=== PATIENT | female | born 1995 | race Caucasian/White ===

== ENCOUNTER 2018-01-17 12:25 | Emergency (ER) | payer OTHER ==
[2018-01-17] MEDS: ACETAMINOPHEN 325 MG TAB PO (12:45)
== END 2018-01-17 13:42 | disposition home or self-care (01) ==
LOC: FTE 12:25
DX: J06.9 Acute upper respiratory infection, unspecified (principal); E11.9 Type 2 diabetes mellitus without complications; Z79.84 Long term (current) use of oral hypoglycemic drugs
CPT/HCPCS: 71045; 99283-25

== ENCOUNTER 2018-02-12 09:10 | Emergency (ER) | payer OTHER ==
[2018-02-12] MEDS: morphine 4 MG/ML VIAL IV (10:06)
[2018-02-12] MEDS: ONDANSETRON 4 MG INJ IV (10:06)
[2018-02-12 10:10] LABS: ADD MAN DIFF? NO
[2018-02-12 10:13] LABS: WHITE BLOOD COUNT 13.3 10^3/ul (4.8-10.8)
[2018-02-12 10:13] LABS: BASOPHIL # 0.1 10^3/ul (0.0-0.1); BASOPHILS % 0.4 % (0.0-2.0); EOSINOPHILS # 0.2 10^3/ul (0.0-0.5); EOSINOPHILS % 1.2 % (0.0-7.0); HEMATOCRIT 40.1 % (37.0-47.0); HEMOGLOBIN 13.2 g/dl (12.0-16.0); LYMPHOCYTES # 2.1 10^3/ul (0.8-2.9); LYMPHOCYTES % 15.6 % (15.0-51.0); MEAN CORPUSCULAR HEMOGLOBIN 27.1 pg (29.0-33.0); MEAN CORPUSCULAR HGB CONC 32.9 g/dl (32.0-37.0); MEAN CORPUSCULAR VOLUME 82.3 fl (82.0-101.0); MEAN PLATELET VOLUME 10.9 fl (7.4-10.4); MONOCYTE # 0.8 10^3/ul (0.3-0.9); MONOCYTES % 6.3 % (0.0-11.0); NEUTROPHIL # 10.2 10^3/ul (1.6-7.5); NEUTROPHILS % 76.1 % (39.0-77.0); PLATELET COUNT 265 10^3/UL (140-415); RED BLOOD COUNT 4.87 10^6/ul (4.20-5.40); RED CELL DISTRIBUTION WIDTH 12.3 % (11.5-14.5)
[2018-02-12 10:24] LABS: ADD UMIC YES; UR ASCORBIC ACID NEGATIVE (NEGATIVE); UR BACTERIA FEW /HPF (NONE SEEN); UR BILIRUBIN (Dip) NEGATIVE (NEGATIVE); UR BLOOD (Dip) 3+ mg/dL (NEGATIVE); UR BUDDING YEAST FEW /HPF (NONE SEEN); UR CLARITY CLEAR (CLEAR); UR COLOR YELLOW (YELLOW); UR GLUCOSE (Dip) 3+ mg/dL (NEGATIVE); UR KETONES (Dip) 1+ mg/dL (NEGATIVE); UR LEUKOCYTE ESTERASE (Dip) NEGATIVE Leu/ul (NEGATIVE); UR NITRITE (Dip) NEGATIVE (NEGATIVE); UR RBC > 182 /HPF (0-5); UR SQUAMOUS EPITHELIAL CELL MODERATE /HPF (FEW); UR TOTAL PROTEIN (Dip) 2+ mg/dl (NEGATIVE); UR UROBILINOGEN (Dip) NEGATIVE (NEGATIVE); UR WBC 7 /HPF (0-5)
[2018-02-12 10:32] LABS: ALANINE AMINOTRANSFERASE 24 IU/L (13-69); ALBUMIN 3.8 g/dl (3.3-4.9); ALBUMIN/GLOBULIN RATIO 1.15; ALKALINE PHOSPHATASE 78 IU/L (42-121); ANION GAP 14 (8-16); ASPARTATE AMINO TRANSFERASE 12 IU/L (15-46); BILIRUBIN,INDIRECT 0.5 mg/dl (0-1.1); BILIRUBIN,TOTAL 0.5 mg/dl (0.2-1.3); BLOOD UREA NITROGEN 5 mg/dl (7-20); CALCIUM 8.8 mg/dl (8.4-10.2); CARBON DIOXIDE 27 mmol/L (21-31); CHLORIDE 105 mmol/L (97-110); CREATINE KINASE 57 IU/L (23-200); CREATININE 0.41 mg/dl (0.44-1.00); GLUCOSE 269 mg/dl (70-220); LIPASE 34 U/L (23-300); POTASSIUM 4.3 mmol/L (3.5-5.1); SODIUM 142 mmol/L (135-144); TOTAL PROTEIN 7.1 g/dl (6.1-8.1)
[2018-02-12] MEDS: KETOROLAC 30 MG INJ IV (11:58)
[2018-02-12] MEDS: SOD CHLORIDE 0.9% 1,000 ML IV (12:18)
== END 2018-02-12 14:50 | disposition home or self-care (01) ==
LOC: FTE 14:50
DX: M79.605 Pain in left leg (principal); R59.9 Enlarged lymph nodes, unspecified; E11.9 Type 2 diabetes mellitus without complications; R10.2 Pelvic and perineal pain; Z79.84 Long term (current) use of oral hypoglycemic drugs
CPT/HCPCS: 36415; 73550; 76856; 80053; 81001; 81025; 82550; 83690; 85025; 96374; 96375; 99285-25

== ENCOUNTER 2018-02-18 22:02 | Inpatient (IN) | payer OTHER ==
[2018-02-18] MEDS ORDERED: PIPER-TAZO 3.375 GM IV (PMX) 100 ML IVPB (23:50)
[2018-02-19] MEDS: SOD CHLORIDE 0.9% 1,000 ML IV ×2 (00:10→03:46)
[2018-02-19] MEDS: VANCOMYCIN 1 GM (PMX) 250 ML IVPB (00:11)
[2018-02-19] MEDS: SODIUM CHLORIDE 0.9% 1L BAG IV* (00:11)
[2018-02-19] MEDS: KETOROLAC 30 MG INJ IV (00:11)
[2018-02-19] MEDS: morphine 4 MG/ML VIAL IV (00:11)
[2018-02-19] MEDS ORDERED: ONDANSETRON 4 MG INJ (00:15)
[2018-02-19 00:22] LABS: ADD MAN DIFF? NO
[2018-02-19 00:24] LABS: BASOPHIL # 0.1 10^3/ul (0.0-0.1); BASOPHILS % 0.4 % (0.0-2.0); EOSINOPHILS # 0.2 10^3/ul (0.0-0.5); EOSINOPHILS % 1.3 % (0.0-7.0); HEMATOCRIT 39.9 % (37.0-47.0); HEMOGLOBIN 13.1 g/dl (12.0-16.0); LYMPHOCYTES # 3.1 10^3/ul (0.8-2.9); LYMPHOCYTES % 18.5 % (15.0-51.0); MEAN CORPUSCULAR HEMOGLOBIN 27.1 pg (29.0-33.0); MEAN CORPUSCULAR HGB CONC 32.8 g/dl (32.0-37.0); MEAN CORPUSCULAR VOLUME 82.4 fl (82.0-101.0); MEAN PLATELET VOLUME 10.4 fl (7.4-10.4); MONOCYTE # 1.2 10^3/ul (0.3-0.9); NEUTROPHILS % 72.3 % (39.0-77.0); PLATELET COUNT 386 10^3/UL (140-415); RED BLOOD COUNT 4.84 10^6/ul (4.20-5.40); RED CELL DISTRIBUTION WIDTH 12.3 % (11.5-14.5)
[2018-02-19 00:24] LABS: WHITE BLOOD COUNT 16.6 10^3/ul (4.8-10.8)
[2018-02-19] MEDS: ONDANSETRON 4 MG INJ IV (00:46)
[2018-02-19 00:58] LABS: LACTIC ACID 1.7 mmol/L (0.5-2.0)
[2018-02-19 01:00] LABS: ALANINE AMINOTRANSFERASE 18 IU/L (13-69); ALBUMIN 3.6 g/dl (3.3-4.9); ALBUMIN/GLOBULIN RATIO 0.97; ALKALINE PHOSPHATASE 92 IU/L (42-121); ANION GAP 15 (8-16); ASPARTATE AMINO TRANSFERASE 13 IU/L (15-46); BILIRUBIN,INDIRECT 0.1 mg/dl (0-1.1); BILIRUBIN,TOTAL 0.1 mg/dl (0.2-1.3); BLOOD UREA NITROGEN 8 mg/dl (7-20); CALCIUM 9.3 mg/dl (8.4-10.2); CARBON DIOXIDE 27 mmol/L (21-31); CHLORIDE 107 mmol/L (97-110); CREATININE 0.44 mg/dl (0.44-1.00); GLUCOSE 321 mg/dl (70-220); POTASSIUM 3.8 mmol/L (3.5-5.1); SODIUM 145 mmol/L (135-144); TOTAL PROTEIN 7.3 g/dl (6.1-8.1)
[2018-02-19] MEDS ORDERED: VANCOMYCIN IV PER PHARMACY XX (03:30)
[2018-02-19 03:32] LABS: ADD UMIC YES; UR ASCORBIC ACID NEGATIVE (NEGATIVE); UR BILIRUBIN (Dip) NEGATIVE (NEGATIVE); UR BLOOD (Dip) 1+ mg/dL (NEGATIVE); UR CLARITY CLEAR (CLEAR); UR COLOR YELLOW (YELLOW); UR GLUCOSE (Dip) 3+ mg/dL (NEGATIVE); UR KETONES (Dip) NEGATIVE (NEGATIVE); UR LEUKOCYTE ESTERASE (Dip) NEGATIVE Leu/ul (NEGATIVE); UR NITRITE (Dip) NEGATIVE (NEGATIVE); UR RBC 1 /HPF (0-5); UR SPECIFIC GRAVITY (Dip) 1.027 (1.003-1.030); UR SQUAMOUS EPITHELIAL CELL FEW /HPF (FEW); UR TOTAL PROTEIN (Dip) 1+ mg/dl (NEGATIVE); UR UROBILINOGEN (Dip) NEGATIVE (NEGATIVE); UR WBC 2 /HPF (0-5)
[2018-02-19 04:12] LABS: ADD MAN DIFF? NO
[2018-02-19 04:18] LABS: WHITE BLOOD COUNT 15.1 10^3/ul (4.8-10.8)
[2018-02-19 04:18] LABS: BASOPHIL # 0.1 10^3/ul (0.0-0.1); BASOPHILS % 0.5 % (0.0-2.0); EOSINOPHILS # 0.2 10^3/ul (0.0-0.5); EOSINOPHILS % 1.5 % (0.0-7.0); HEMATOCRIT 32.5 % (37.0-47.0); HEMOGLOBIN 10.7 g/dl (12.0-16.0); LYMPHOCYTES # 3.3 10^3/ul (0.8-2.9); LYMPHOCYTES % 21.8 % (15.0-51.0); MEAN CORPUSCULAR HEMOGLOBIN 27.3 pg (29.0-33.0); MEAN CORPUSCULAR HGB CONC 32.9 g/dl (32.0-37.0); MEAN CORPUSCULAR VOLUME 82.9 fl (82.0-101.0); MEAN PLATELET VOLUME 10.2 fl (7.4-10.4); MONOCYTE # 1.1 10^3/ul (0.3-0.9); MONOCYTES % 7.4 % (0.0-11.0); NEUTROPHIL # 10.3 10^3/ul (1.6-7.5); NEUTROPHILS % 68.2 % (39.0-77.0); PLATELET COUNT 323 10^3/UL (140-415); RED BLOOD COUNT 3.92 10^6/ul (4.20-5.40); RED CELL DISTRIBUTION WIDTH 12.3 % (11.5-14.5)
[2018-02-19 04:36] LABS: HEMOGLOBIN A1C 11.4 % (0-5.9)
[2018-02-19 04:53] LABS: ALANINE AMINOTRANSFERASE 13 IU/L (13-69); ALBUMIN 2.5 g/dl (3.3-4.9); ALKALINE PHOSPHATASE 70 IU/L (42-121); ANION GAP 10 (8-16); ASPARTATE AMINO TRANSFERASE 10 IU/L (15-46); BILIRUBIN,INDIRECT 0.1 mg/dl (0-1.1); BILIRUBIN,TOTAL 0.1 mg/dl (0.2-1.3); BLOOD UREA NITROGEN 6 mg/dl (7-20); CALCIUM 7.8 mg/dl (8.4-10.2); CARBON DIOXIDE 25 mmol/L (21-31); CHLORIDE 115 mmol/L (97-110); CREATININE 0.36 mg/dl (0.44-1.00); GLUCOSE 261 mg/dl (70-220); POTASSIUM 3.9 mmol/L (3.5-5.1); SODIUM 146 mmol/L (135-144); TOTAL PROTEIN 5.6 g/dl (6.1-8.1)
[2018-02-19] MEDS: ACETAMINOPHEN 325 MG TAB PO ×3 (07:49→20:39)
[2018-02-19] MEDS: VANCOMYCIN 1.75 GM in SOD CHLORIDE 0.9% 500 ML IVPB (08:45)
[2018-02-19] MEDS: ENOXAPARIN 40 MG/0.4 ML SYG SC (08:53)
[2018-02-19] MEDS: INSULIN ASPART [NOVOLOG] 3 ML PEN SC ×5 (08:55→20:42)
[2018-02-19] MEDS: LEVOFLOXACIN 500MG/D5W (PMX) 100 ML IVPB (11:17)
[2018-02-19] MEDS: morphine 2 MG INJ IV ×2 (13:41→22:22)
[2018-02-19] MEDS: SOD CHLORIDE 0.45% 1,000 ML IV (15:23)
[2018-02-19] MEDS: Discontinue current oral sulfonylureas (glyburide, glipizide, and/or glimepiride) prior to XX (15:24)
[2018-02-19] MEDS: HYPOGLYCEMIA PROTOCOL when Glucose is <70 mg/dL or symptomatic <90 mg/dL. XX (15:24)
[2018-02-19] MEDS ORDERED: GLUCOSE GEL 15 GRAM TUBE PO ×2 (15:30)
[2018-02-19] MEDS ORDERED: GLUCAGON 1 MG INJ IM (15:30)
[2018-02-19] MEDS ORDERED: DEXTROSE 50% 50 ML SYRINGE IV ×2 (15:30)
[2018-02-19] MEDS ORDERED: GLUCOSE GEL 15 GRAM TUBE BUCCAL (15:30)
[2018-02-19] MEDS: SOD CHLORIDE 0.9% 100 ML (16:29)
[2018-02-19] MEDS: IOHEXOL 300MG/ML 150 ML BTL (16:30)
[2018-02-19] MEDS: VANCOMYCIN 1.25 GM in SOD CHLORIDE 0.9% 250 ML IVPB (17:44)
[2018-02-19] MEDS: INSULIN GLARGINE [LANtus] 3 ML PEN SC (20:43)
[2018-02-19] MEDS ORDERED: ZOLPIDEM 5 MG TAB PO (22:30)
[2018-02-20] MEDS: ACCU-CHEK XX (01:45)
[2018-02-20] MEDS: VANCOMYCIN 1.25 GM in SOD CHLORIDE 0.9% 250 ML IVPB ×2 (01:48→10:27)
[2018-02-20] MEDS ORDERED: ACCU-CHEK XX ×2 (02:00)
[2018-02-20] MEDS: morphine 2 MG INJ IV ×5 (02:30→23:06)
[2018-02-20] MEDS: SOD CHLORIDE 0.45% 1,000 ML IV ×2 (05:48→23:06)
[2018-02-20 06:46] LABS: ADD MAN DIFF? NO
[2018-02-20 07:00] LABS: BASOPHIL # 0.1 10^3/ul (0.0-0.1); BASOPHILS % 0.4 % (0.0-2.0); EOSINOPHILS # 0.2 10^3/ul (0.0-0.5); EOSINOPHILS % 1.1 % (0.0-7.0); HEMATOCRIT 33.4 % (37.0-47.0); HEMOGLOBIN 10.8 g/dl (12.0-16.0); LYMPHOCYTES # 2.5 10^3/ul (0.8-2.9); LYMPHOCYTES % 16.9 % (15.0-51.0); MEAN CORPUSCULAR HEMOGLOBIN 27.3 pg (29.0-33.0); MEAN CORPUSCULAR HGB CONC 32.3 g/dl (32.0-37.0); MEAN CORPUSCULAR VOLUME 84.6 fl (82.0-101.0); MEAN PLATELET VOLUME 10.7 fl (7.4-10.4); MONOCYTE # 1.1 10^3/ul (0.3-0.9); MONOCYTES % 7.6 % (0.0-11.0); NEUTROPHIL # 10.9 10^3/ul (1.6-7.5); NEUTROPHILS % 73.6 % (39.0-77.0); PLATELET COUNT 340 10^3/UL (140-415); RED BLOOD COUNT 3.95 10^6/ul (4.20-5.40); RED CELL DISTRIBUTION WIDTH 12.2 % (11.5-14.5)
[2018-02-20 07:00] LABS: WHITE BLOOD COUNT 14.8 10^3/ul (4.8-10.8)
[2018-02-20 07:13] LABS: MAGNESIUM 1.7 mg/dl (1.7-2.5)
[2018-02-20 07:13] LABS: PHOSPHORUS 4.4 mg/dl (2.5-4.9)
[2018-02-20 07:15] LABS: ANION GAP 14 (8-16); BLOOD UREA NITROGEN 5 mg/dl (7-20); CALCIUM 8.4 mg/dl (8.4-10.2); CARBON DIOXIDE 27 mmol/L (21-31); CHLORIDE 106 mmol/L (97-110); CREATININE 0.47 mg/dl (0.44-1.00); GLUCOSE 200 mg/dl (70-220); POTASSIUM 3.7 mmol/L (3.5-5.1); SODIUM 143 mmol/L (135-144)
[2018-02-20] MEDS: INSULIN ASPART [NOVOLOG] 3 ML PEN SC ×7 (08:21→20:28)
[2018-02-20] MEDS: LEVOFLOXACIN 500MG/D5W (PMX) 100 ML IVPB (09:32)
[2018-02-20] MEDS: ENOXAPARIN 40 MG/0.4 ML SYG SC (09:33)
[2018-02-20] MEDS: ACETAMINOPHEN 325 MG TAB PO ×2 (09:42→19:50)
[2018-02-20] MEDS: LIDOCAINE 2%/EPI (MDV) 20ML INJ INJ (16:00)
[2018-02-20] MEDS: VANCOMYCIN 2 GM in SOD CHLORIDE 0.9% 500 ML IVPB (18:17)
[2018-02-20] MEDS: INSULIN GLARGINE [LANtus] 3 ML PEN SC (20:27)
[2018-02-21] MEDS: ACCU-CHEK XX (01:54)
[2018-02-21] MEDS: VANCOMYCIN 2 GM in SOD CHLORIDE 0.9% 500 ML IVPB ×3 (01:55→18:18)
[2018-02-21] MEDS: morphine 2 MG INJ IV ×4 (05:40→22:24)
[2018-02-21 05:45] LABS: ADD MAN DIFF? NO
[2018-02-21 05:48] LABS: BASOPHIL # 0.1 10^3/ul (0.0-0.1); BASOPHILS % 0.5 % (0.0-2.0); EOSINOPHILS # 0.2 10^3/ul (0.0-0.5); EOSINOPHILS % 1.7 % (0.0-7.0); HEMATOCRIT 31.7 % (37.0-47.0); HEMOGLOBIN 10.5 g/dl (12.0-16.0); LYMPHOCYTES # 2.5 10^3/ul (0.8-2.9); LYMPHOCYTES % 21.3 % (15.0-51.0); MEAN CORPUSCULAR HEMOGLOBIN 27.5 pg (29.0-33.0); MEAN CORPUSCULAR HGB CONC 33.1 g/dl (32.0-37.0); MEAN PLATELET VOLUME 10.1 fl (7.4-10.4); MONOCYTE # 0.8 10^3/ul (0.3-0.9); MONOCYTES % 7.1 % (0.0-11.0); NEUTROPHILS % 68.6 % (39.0-77.0); PLATELET COUNT 324 10^3/UL (140-415); RED BLOOD COUNT 3.82 10^6/ul (4.20-5.40); RED CELL DISTRIBUTION WIDTH 12.2 % (11.5-14.5)
[2018-02-21 05:48] LABS: WHITE BLOOD COUNT 11.7 10^3/ul (4.8-10.8)
[2018-02-21 06:15] LABS: PHOSPHORUS 4.9 mg/dl (2.5-4.9)
[2018-02-21 06:15] LABS: MAGNESIUM 1.8 mg/dl (1.7-2.5)
[2018-02-21 06:52] LABS: ANION GAP 9 (8-16); BLOOD UREA NITROGEN 7 mg/dl (7-20); CALCIUM 8.4 mg/dl (8.4-10.2); CARBON DIOXIDE 30 mmol/L (21-31); CHLORIDE 107 mmol/L (97-110); CREATININE 0.41 mg/dl (0.44-1.00); GLUCOSE 206 mg/dl (70-220); POTASSIUM 3.6 mmol/L (3.5-5.1); SODIUM 142 mmol/L (135-144)
[2018-02-21] MEDS: LEVOFLOXACIN 500MG/D5W (PMX) 100 ML IVPB ×2 (08:35→18:30)
[2018-02-21] MEDS: INSULIN ASPART [NOVOLOG] 3 ML PEN SC ×7 (08:39→22:23)
[2018-02-21] MEDS: ENOXAPARIN 40 MG/0.4 ML SYG SC (08:40)
[2018-02-21] MEDS: SOD CHLORIDE 0.45% 1,000 ML IV (10:24)
[2018-02-21] MEDS: ONDANSETRON 4 MG INJ IV ×2 (11:04→21:03)
[2018-02-21 17:27] LABS: VANCOMYCIN,TROUGH 14.9 ug/ml (10.0-20.0)
[2018-02-21] MEDS: INSULIN GLARGINE [LANtus] 3 ML PEN SC (22:22)
[2018-02-21] MEDS: SODIUM HYPOCHLORITE 0.125% 473 ML BTL IRR (22:23)
[2018-02-21] MEDS: ACETAMINOPHEN 325 MG TAB PO (23:18)
[2018-02-22] MEDS: ACCU-CHEK XX ×2 (02:00→20:27)
[2018-02-22] MEDS: SOD CHLORIDE 0.45% 1,000 ML IV (02:23)
[2018-02-22] MEDS: VANCOMYCIN 2 GM in SOD CHLORIDE 0.9% 500 ML IVPB ×2 (02:23→10:17)
[2018-02-22] MEDS: morphine 2 MG INJ IV ×5 (02:48→22:41)
[2018-02-22 06:07] LABS: ADD MAN DIFF? NO
[2018-02-22 06:13] LABS: WHITE BLOOD COUNT 9.9 10^3/ul (4.8-10.8)
[2018-02-22 06:13] LABS: BASOPHILS % 0.4 % (0.0-2.0); EOSINOPHILS # 0.3 10^3/ul (0.0-0.5); EOSINOPHILS % 3.1 % (0.0-7.0); HEMATOCRIT 32.3 % (37.0-47.0); HEMOGLOBIN 10.4 g/dl (12.0-16.0); LYMPHOCYTES # 2.7 10^3/ul (0.8-2.9); LYMPHOCYTES % 27.5 % (15.0-51.0); MEAN CORPUSCULAR HEMOGLOBIN 26.8 pg (29.0-33.0); MEAN CORPUSCULAR HGB CONC 32.2 g/dl (32.0-37.0); MEAN CORPUSCULAR VOLUME 83.2 fl (82.0-101.0); MEAN PLATELET VOLUME 10.1 fl (7.4-10.4); MONOCYTE # 0.8 10^3/ul (0.3-0.9); MONOCYTES % 7.8 % (0.0-11.0); NEUTROPHILS % 60.8 % (39.0-77.0); PLATELET COUNT 334 10^3/UL (140-415); RED BLOOD COUNT 3.88 10^6/ul (4.20-5.40); RED CELL DISTRIBUTION WIDTH 12.4 % (11.5-14.5)
[2018-02-22 06:43] LABS: ANION GAP 13 (8-16); BLOOD UREA NITROGEN 5 mg/dl (7-20); CALCIUM 8.6 mg/dl (8.4-10.2); CARBON DIOXIDE 30 mmol/L (21-31); CHLORIDE 107 mmol/L (97-110); GLUCOSE 140 mg/dl (70-220); POTASSIUM 3.7 mmol/L (3.5-5.1); SODIUM 146 mmol/L (135-144)
[2018-02-22 06:44] LABS: PHOSPHORUS 5.4 mg/dl (2.5-4.9)
[2018-02-22 06:44] LABS: MAGNESIUM 1.8 mg/dl (1.7-2.5)
[2018-02-22] MEDS: INSULIN ASPART [NOVOLOG] 3 ML PEN SC ×7 (08:15→20:02)
[2018-02-22] MEDS: ENOXAPARIN 40 MG/0.4 ML SYG SC (09:12)
[2018-02-22] MEDS: SODIUM HYPOCHLORITE 0.125% 473 ML BTL IRR (09:12)
[2018-02-22] MEDS ORDERED: VANCOMYCIN 1.75 GM in SOD CHLORIDE 0.9% 500 ML IVPB (18:00)
[2018-02-22] MEDS ORDERED: TRIMETHOPRIM/SULFAMETHOX (DS) TAB (19:59)
[2018-02-22] MEDS: TRIMETHOPRIM/SULFAMETHOX (DS) TAB PO (20:02)
[2018-02-22] MEDS: ONDANSETRON 4 MG INJ IV (20:02)
[2018-02-22] MEDS: INSULIN GLARGINE [LANtus] 3 ML PEN SC (20:04)
[2018-02-23] MEDS: morphine 2 MG INJ IV ×4 (02:57→17:43)
[2018-02-23] MEDS: INSULIN ASPART [NOVOLOG] 3 ML PEN SC ×6 (08:00→17:37)
[2018-02-23] MEDS: TRIMETHOPRIM/SULFAMETHOX (DS) TAB PO (08:29)
[2018-02-23] MEDS: ENOXAPARIN 40 MG/0.4 ML SYG SC (08:31)
[2018-02-23] MEDS: ONDANSETRON 4 MG INJ IV (08:59)
[2018-02-23] MEDS: LINAGLIPTIN 5 MG TABLET PO (12:10)
[2018-02-23] MEDS: ACETAMINOPHEN 325 MG TAB PO (12:12)
[2018-02-23] MEDS: SODIUM HYPOCHLORITE 0.125% 473 ML BTL IRR (14:00)
== END 2018-02-23 19:15 | disposition home or self-care (01) | DRG 603 ==
LOC: PP2 02-19 00:38 → FTE 22:02
PROC: 0J9M3ZX Drainage of Left Upper Leg Subcutaneous Tissue and Fascia, Percutaneous Approach, Diagnostic (ICD-10-PCS; principal; 2018-02-20)
DX: L03.116 Cellulitis of left lower limb (principal); E11.65 Type 2 diabetes mellitus with hyperglycemia; E83.51 Hypocalcemia; E88.09 Other disorders of plasma-protein metabolism, not elsewhere classified; E66.01 Morbid (severe) obesity due to excess calories; B95.61 Methicillin susceptible Staphylococcus aureus infection as the cause of diseases classified elsewhere; E03.9 Hypothyroidism, unspecified; L02.416 Cutaneous abscess of left lower limb; Z68.27 Body mass index [BMI] 27.0-27.9, adult; Z79.4 Long term (current) use of insulin
CPT/HCPCS: 36415; 73700; 80048; 80053; 80202; 81001; 82962; 83036; 83605; 83735; 84100; 85025; 87070; 96365; 96375; 99285-25

== ENCOUNTER 2018-04-11 19:39 | Inpatient (IN) | payer OTHER ==
[2018-04-11] MEDS: SODIUM CHLORIDE 0.9% 1L BAG IV* (20:27)
[2018-04-11] MEDS: CEFEPIME 2GM/50 ML (PMX) 50 ML IVPB (20:36)
[2018-04-11 20:41] LABS: ADD MAN DIFF? NO
[2018-04-11 20:44] LABS: WHITE BLOOD COUNT 9.2 10^3/ul (4.8-10.8)
[2018-04-11 20:44] LABS: BASOPHILS % 0.4 % (0.0-2.0); EOSINOPHILS % 0.2 % (0.0-7.0); HEMATOCRIT 40.6 % (37.0-47.0); HEMOGLOBIN 13.5 g/dl (12.0-16.0); LYMPHOCYTES # 1.2 10^3/ul (0.8-2.9); LYMPHOCYTES % 13.5 % (15.0-51.0); MEAN CORPUSCULAR HEMOGLOBIN 26.7 pg (29.0-33.0); MEAN CORPUSCULAR HGB CONC 33.3 g/dl (32.0-37.0); MEAN CORPUSCULAR VOLUME 80.4 fl (82.0-101.0); MEAN PLATELET VOLUME 11.1 fl (7.4-10.4); MONOCYTE # 0.4 10^3/ul (0.3-0.9); MONOCYTES % 3.9 % (0.0-11.0); NEUTROPHIL # 7.5 10^3/ul (1.6-7.5); NEUTROPHILS % 81.6 % (39.0-77.0); PLATELET COUNT 259 10^3/UL (140-415); RED BLOOD COUNT 5.05 10^6/ul (4.20-5.40); RED CELL DISTRIBUTION WIDTH 13.3 % (11.5-14.5)
[2018-04-11] MEDS: ACETAMINOPHEN 500 MG TAB PO (20:45)
[2018-04-11] MEDS: ONDANSETRON 4 MG INJ IV (20:45)
[2018-04-11] MEDS: HYDROmorphONE 0.5 MG/0.5 ML SYG IV ×2 (20:45→22:20)
[2018-04-11 21:06] LABS: INR 0.99; PROTIME 13.2 Sec (11.9-14.9)
[2018-04-11 21:07] LABS: PARTIAL THROMBOPLASTIN TIME 37.3 Sec (25.0-35.0)
[2018-04-11 21:11] LABS: ALANINE AMINOTRANSFERASE 19 IU/L (13-69); ALBUMIN 4.5 g/dl (3.3-4.9); ALBUMIN/GLOBULIN RATIO 1.25; ALKALINE PHOSPHATASE 78 IU/L (42-121); ANION GAP 16 (8-16); ASPARTATE AMINO TRANSFERASE 23 IU/L (15-46); BILIRUBIN,INDIRECT 0.5 mg/dl (0-1.1); BILIRUBIN,TOTAL 0.5 mg/dl (0.2-1.3); BLOOD UREA NITROGEN 5 mg/dl (7-20); CALCIUM 9.2 mg/dl (8.4-10.2); CARBON DIOXIDE 24 mmol/L (21-31); CHLORIDE 104 mmol/L (97-110); CREATININE 0.52 mg/dl (0.44-1.00); GLUCOSE 203 mg/dl (70-220); POTASSIUM 3.5 mmol/L (3.5-5.1); SODIUM 140 mmol/L (135-144); TOTAL PROTEIN 8.1 g/dl (6.1-8.1)
[2018-04-11 21:22] LABS: TROPONIN-I < 0.010 ng/ml (0.000-0.120)
[2018-04-11 21:31] LABS: URINE BLOOD (Dip) POC 2+ (NEGATIVE); URINE KETONES (Dip) POC Negative (NEGATIVE); URINE LEUKOCYTE EST (Dip) POC 2+ (NEGATIVE); URINE NITRITE (Dip) POC Positive (NEGATIVE); URINE TOTAL PROTEIN POC 2+ (NEGATIVE)
[2018-04-11 21:31] LABS: URINE PH (Dip) POC 5.5 (5.0-8.5)
[2018-04-11 21:56] LABS: ADD UMIC YES; UR ASCORBIC ACID NEGATIVE (NEGATIVE); UR BACTERIA MODERATE /HPF (NONE SEEN); UR BILIRUBIN (Dip) NEGATIVE (NEGATIVE); UR BLOOD (Dip) 1+ mg/dL (NEGATIVE); UR CLARITY CLOUDY (CLEAR); UR COLOR YELLOW (YELLOW); UR GLUCOSE (Dip) 2+ mg/dL (NEGATIVE); UR KETONES (Dip) NEGATIVE (NEGATIVE); UR LEUKOCYTE ESTERASE (Dip) 3+ Leu/ul (NEGATIVE); UR MUCUS FEW /HPF (NONE SEEN); UR NITRITE (Dip) POSITIVE (NEGATIVE); UR RBC 14 /HPF (0-5); UR SPECIFIC GRAVITY (Dip) 1.011 (1.003-1.030); UR SQUAMOUS EPITHELIAL CELL FEW /HPF (FEW); UR TOTAL PROTEIN (Dip) 2+ mg/dl (NEGATIVE); UR UROBILINOGEN (Dip) NEGATIVE (NEGATIVE); UR WBC > 182 /HPF (0-5)
[2018-04-11 22:07] LABS: FREE T4 (FREE THYROXINE) 1.24 ng/dl (0.79-2.35)
[2018-04-11] MEDS ORDERED: ACETAMINOPHEN 325 MG TAB PO (22:30)
[2018-04-11 22:31] LABS: LACTIC ACID 1.6 mmol/L (0.5-2.0)
[2018-04-12] MEDS ORDERED: GLUCOSE GEL 15 GRAM TUBE BUCCAL (00:15)
[2018-04-12] MEDS ORDERED: GLUCOSE GEL 15 GRAM TUBE PO ×2 (00:15)
[2018-04-12] MEDS ORDERED: DEXTROSE 50% 50 ML SYRINGE IV ×2 (00:15)
[2018-04-12] MEDS ORDERED: GLUCAGON 1 MG INJ IM (00:15)
[2018-04-12 01:11] LABS: LACTIC ACID 0.9 mmol/L (0.5-2.0)
[2018-04-12 01:13] LABS: ALANINE AMINOTRANSFERASE 21 IU/L (13-69); ALBUMIN 3.5 g/dl (3.3-4.9); ALBUMIN/GLOBULIN RATIO 1.12; ALKALINE PHOSPHATASE 58 IU/L (42-121); ANION GAP 12 (8-16); ASPARTATE AMINO TRANSFERASE 14 IU/L (15-46); BILIRUBIN,INDIRECT 0.5 mg/dl (0-1.1); BILIRUBIN,TOTAL 0.5 mg/dl (0.2-1.3); BLOOD UREA NITROGEN 5 mg/dl (7-20); CALCIUM 8.1 mg/dl (8.4-10.2); CARBON DIOXIDE 25 mmol/L (21-31); CHLORIDE 107 mmol/L (97-110); CREATININE 0.53 mg/dl (0.44-1.00); GLUCOSE 212 mg/dl (70-220); POTASSIUM 3.7 mmol/L (3.5-5.1); SODIUM 140 mmol/L (135-144); TOTAL PROTEIN 6.6 g/dl (6.1-8.1)
[2018-04-12] MEDS: ACCU-CHEK XX (02:00)
[2018-04-12] MEDS: morphine 2 MG INJ IV ×5 (03:55→21:26)
[2018-04-12] MEDS: PANTOPRAZOLE (EC) 40 MG TAB PO (06:03)
[2018-04-12 08:06] LABS: ADD MAN DIFF? NO
[2018-04-12 08:09] LABS: WHITE BLOOD COUNT 10.5 10^3/ul (4.8-10.8)
[2018-04-12 08:09] LABS: BASOPHIL # 0.1 10^3/ul (0.0-0.1); BASOPHILS % 0.5 % (0.0-2.0); EOSINOPHILS # 0.1 10^3/ul (0.0-0.5); EOSINOPHILS % 0.6 % (0.0-7.0); HEMATOCRIT 34.9 % (37.0-47.0); HEMOGLOBIN 11.3 g/dl (12.0-16.0); LYMPHOCYTES # 2.2 10^3/ul (0.8-2.9); LYMPHOCYTES % 21.3 % (15.0-51.0); MEAN CORPUSCULAR HEMOGLOBIN 26.3 pg (29.0-33.0); MEAN CORPUSCULAR HGB CONC 32.4 g/dl (32.0-37.0); MEAN CORPUSCULAR VOLUME 81.2 fl (82.0-101.0); MONOCYTE # 1.1 10^3/ul (0.3-0.9); MONOCYTES % 10.3 % (0.0-11.0); NEUTROPHILS % 66.9 % (39.0-77.0); PLATELET COUNT 229 10^3/UL (140-415); RED CELL DISTRIBUTION WIDTH 13.6 % (11.5-14.5)
[2018-04-12] MEDS: INSULIN ASPART [NOVOLOG] 3 ML PEN SC ×4 (08:46→20:41)
[2018-04-12] MEDS ORDERED: PIPER-TAZO 3.375 GM IV (PMX) 100 ML IVPB (09:00)
[2018-04-12] MEDS: SOD CHLORIDE 0.9% 1,000 ML IV ×3 (10:00→20:39)
[2018-04-12] MEDS: CEFEPIME 1GM/50 ML (PMX) 50 ML IVPB (11:30)
[2018-04-12] MEDS: ONDANSETRON 4 MG INJ IV (11:59)
[2018-04-12] MEDS: MEROPENEM 500MG/50 ML (PMX) 50 ML IVPB ×2 (15:40→21:25)
[2018-04-12] MEDS: morphine LIQ (10 MG/5 ML) CUP PO (15:45)
[2018-04-12] MEDS ORDERED: morphine 2 MG INJ (16:49)
[2018-04-12] MEDS: TAMSULOSIN (SR) 0.4 MG CAP PO (20:39)
[2018-04-12] MEDS: INSULIN GLARGINE [LANTus] (100 UNITS/ML) SYG SC (20:41)
[2018-04-13] MEDS: ACCU-CHEK XX (02:09)
[2018-04-13] MEDS: morphine 2 MG INJ IV ×4 (04:28→22:42)
[2018-04-13] MEDS: SOD CHLORIDE 0.9% 1,000 ML IV ×2 (06:00→16:14)
[2018-04-13] MEDS: MEROPENEM 500MG/50 ML (PMX) 50 ML IVPB ×3 (06:01→21:12)
[2018-04-13] MEDS: PANTOPRAZOLE (EC) 40 MG TAB PO (06:01)
[2018-04-13] MEDS: INSULIN ASPART [NOVOLOG] 3 ML PEN SC ×4 (08:36→20:16)
[2018-04-13] MEDS: ACETAMINOPHEN 325 MG TAB PO (18:35)
[2018-04-13] MEDS: ONDANSETRON 4 MG TAB PO (20:11)
[2018-04-13] MEDS: TAMSULOSIN (SR) 0.4 MG CAP PO (20:11)
[2018-04-13] MEDS: INSULIN GLARGINE [LANTus] (100 UNITS/ML) SYG SC (20:20)
[2018-04-14] MEDS: ACCU-CHEK XX (01:28)
[2018-04-14] MEDS: SOD CHLORIDE 0.9% 1,000 ML IV ×4 (01:47→17:36)
[2018-04-14] MEDS: morphine 2 MG INJ IV ×4 (03:31→20:36)
[2018-04-14] MEDS: PANTOPRAZOLE (EC) 40 MG TAB PO (06:04)
[2018-04-14] MEDS: MEROPENEM 500MG/50 ML (PMX) 50 ML IVPB ×3 (06:04→21:52)
[2018-04-14] MEDS: INSULIN ASPART [NOVOLOG] 3 ML PEN SC ×4 (08:39→20:42)
[2018-04-14] MEDS: ONDANSETRON 4 MG TAB PO (11:43)
[2018-04-14] MEDS: HYDROCODONE/APAP (5/325) TAB PO (14:07)
[2018-04-14] MEDS: ACETAMINOPHEN 325 MG TAB PO (17:36)
[2018-04-14] MEDS: TAMSULOSIN (SR) 0.4 MG CAP PO (20:35)
[2018-04-14] MEDS: INSULIN GLARGINE [LANTus] (100 UNITS/ML) SYG SC (20:43)
[2018-04-15] MEDS: HYDROCODONE/APAP (5/325) TAB PO ×2 (00:34→11:39)
[2018-04-15] MEDS: ACCU-CHEK XX (02:19)
[2018-04-15] MEDS: morphine 2 MG INJ IV ×3 (04:09→21:42)
[2018-04-15] MEDS: SOD CHLORIDE 0.9% 1,000 ML IV ×2 (04:10→15:01)
[2018-04-15 05:02] LABS: ADD MAN DIFF? NO
[2018-04-15 05:15] LABS: WHITE BLOOD COUNT 8.1 10^3/ul (4.8-10.8)
[2018-04-15 05:16] LABS: BASOPHILS % 0.4 % (0.0-2.0); EOSINOPHILS # 0.3 10^3/ul (0.0-0.5); EOSINOPHILS % 4.2 % (0.0-7.0); HEMATOCRIT 32.2 % (37.0-47.0); HEMOGLOBIN 10.6 g/dl (12.0-16.0); LYMPHOCYTES # 3.4 10^3/ul (0.8-2.9); LYMPHOCYTES % 41.6 % (15.0-51.0); MEAN CORPUSCULAR HEMOGLOBIN 26.2 pg (29.0-33.0); MEAN CORPUSCULAR HGB CONC 32.9 g/dl (32.0-37.0); MEAN CORPUSCULAR VOLUME 79.7 fl (82.0-101.0); MEAN PLATELET VOLUME 10.1 fl (7.4-10.4); MONOCYTE # 0.7 10^3/ul (0.3-0.9); MONOCYTES % 8.5 % (0.0-11.0); NEUTROPHIL # 3.6 10^3/ul (1.6-7.5); NEUTROPHILS % 44.7 % (39.0-77.0); PLATELET COUNT 271 10^3/UL (140-415); RED BLOOD COUNT 4.04 10^6/ul (4.20-5.40); RED CELL DISTRIBUTION WIDTH 13.2 % (11.5-14.5)
[2018-04-15 05:35] LABS: ANION GAP 11 (8-16); BLOOD UREA NITROGEN 9 mg/dl (7-20); CALCIUM 8.5 mg/dl (8.4-10.2); CARBON DIOXIDE 24 mmol/L (21-31); CHLORIDE 108 mmol/L (97-110); CREATININE 0.42 mg/dl (0.44-1.00); GLUCOSE 132 mg/dl (70-220); POTASSIUM 3.5 mmol/L (3.5-5.1); SODIUM 139 mmol/L (135-144)
[2018-04-15] MEDS: MEROPENEM 500MG/50 ML (PMX) 50 ML IVPB (05:38)
[2018-04-15] MEDS: PANTOPRAZOLE (EC) 40 MG TAB PO (05:38)
[2018-04-15] MEDS: INSULIN ASPART [NOVOLOG] 3 ML PEN SC ×4 (07:50→21:51)
[2018-04-15] MEDS: CIPROFLOXACIN 400MG/D5W 200 ML IVPB ×2 (10:29→21:46)
[2018-04-15] MEDS: ONDANSETRON 4 MG TAB PO (11:37)
[2018-04-15] MEDS: HYDROCODONE/APAP (7.5/325) TAB PO (16:25)
[2018-04-15] MEDS: BARIUM SULF 2% 450 ML BTL (BERRY SMOOTHIE) PO (17:27)
[2018-04-15] MEDS: TAMSULOSIN (SR) 0.4 MG CAP PO (21:46)
[2018-04-15] MEDS: INSULIN GLARGINE [LANTus] (100 UNITS/ML) SYG SC (21:52)
[2018-04-16 00:38] LABS: ADD UMIC YES; UR ASCORBIC ACID NEGATIVE (NEGATIVE); UR BILIRUBIN (Dip) NEGATIVE (NEGATIVE); UR BLOOD (Dip) 2+ mg/dL (NEGATIVE); UR CLARITY CLEAR (CLEAR); UR COLOR STRAW (YELLOW); UR GLUCOSE (Dip) 1+ mg/dL (NEGATIVE); UR KETONES (Dip) NEGATIVE (NEGATIVE); UR LEUKOCYTE ESTERASE (Dip) NEGATIVE Leu/ul (NEGATIVE); UR NITRITE (Dip) NEGATIVE (NEGATIVE); UR RBC 0 /HPF (0-5); UR SPECIFIC GRAVITY (Dip) 1.005 (1.003-1.030); UR SQUAMOUS EPITHELIAL CELL FEW /HPF (FEW); UR TOTAL PROTEIN (Dip) NEGATIVE (NEGATIVE); UR UROBILINOGEN (Dip) NEGATIVE (NEGATIVE); UR WBC 2 /HPF (0-5)
[2018-04-16] MEDS: ACCU-CHEK XX (02:00)
[2018-04-16] MEDS: SOD CHLORIDE 0.9% 1,000 ML IV ×3 (02:25→12:49)
[2018-04-16] MEDS: morphine 2 MG INJ IV ×3 (02:25→18:20)
[2018-04-16] MEDS: ACETAMINOPHEN 325 MG TAB PO ×2 (04:52→20:17)
[2018-04-16 05:37] LABS: ADD MAN DIFF? NO
[2018-04-16 05:49] LABS: BASOPHILS % 0.5 % (0.0-2.0); EOSINOPHILS # 0.3 10^3/ul (0.0-0.5); EOSINOPHILS % 3.4 % (0.0-7.0); HEMATOCRIT 33.8 % (37.0-47.0); LYMPHOCYTES # 3.1 10^3/ul (0.8-2.9); LYMPHOCYTES % 38.9 % (15.0-51.0); MEAN CORPUSCULAR HEMOGLOBIN 26.4 pg (29.0-33.0); MEAN CORPUSCULAR HGB CONC 32.5 g/dl (32.0-37.0); MEAN CORPUSCULAR VOLUME 81.3 fl (82.0-101.0); MEAN PLATELET VOLUME 10.2 fl (7.4-10.4); MONOCYTE # 0.4 10^3/ul (0.3-0.9); MONOCYTES % 5.5 % (0.0-11.0); NEUTROPHIL # 4.1 10^3/ul (1.6-7.5); NEUTROPHILS % 51.2 % (39.0-77.0); PLATELET COUNT 321 10^3/UL (140-415); RED BLOOD COUNT 4.16 10^6/ul (4.20-5.40); RED CELL DISTRIBUTION WIDTH 13.1 % (11.5-14.5)
[2018-04-16] MEDS: PANTOPRAZOLE (EC) 40 MG TAB PO (05:51)
[2018-04-16 06:17] LABS: ANION GAP 12 (8-16); BLOOD UREA NITROGEN 7 mg/dl (7-20); CALCIUM 8.6 mg/dl (8.4-10.2); CARBON DIOXIDE 26 mmol/L (21-31); CHLORIDE 106 mmol/L (97-110); GLUCOSE 157 mg/dl (70-220); POTASSIUM 3.8 mmol/L (3.5-5.1); SODIUM 140 mmol/L (135-144)
[2018-04-16] MEDS: INSULIN ASPART [NOVOLOG] 3 ML PEN SC ×4 (07:50→20:24)
[2018-04-16] MEDS: CIPROFLOXACIN 400MG/D5W 200 ML IVPB ×2 (09:20→20:24)
[2018-04-16] MEDS: HYDROCODONE/APAP (7.5/325) TAB PO (09:58)
[2018-04-16] MEDS: ONDANSETRON 4 MG TAB PO (09:58)
[2018-04-16] MEDS: TAMSULOSIN (SR) 0.4 MG CAP PO (20:17)
[2018-04-16] MEDS: INSULIN GLARGINE [LANTus] (100 UNITS/ML) SYG SC (20:21)
[2018-04-17] MEDS: SOD CHLORIDE 0.9% 1,000 ML IV ×2 (00:37→11:54)
[2018-04-17] MEDS: HYDROCODONE/APAP (7.5/325) TAB PO ×4 (01:18→23:50)
[2018-04-17] MEDS: ACCU-CHEK XX (02:00)
[2018-04-17] MEDS: morphine 2 MG INJ IV ×2 (02:49→12:00)
[2018-04-17] MEDS: PANTOPRAZOLE (EC) 40 MG TAB PO (06:31)
[2018-04-17] MEDS: INSULIN ASPART [NOVOLOG] 3 ML PEN SC ×4 (07:50→21:10)
[2018-04-17] MEDS: ONDANSETRON 4 MG TAB PO (08:27)
[2018-04-17] MEDS: CIPROFLOXACIN 400MG/D5W 200 ML IVPB (08:30)
[2018-04-17 15:29] LABS: ADD UMIC NO; UR ASCORBIC ACID NEGATIVE (NEGATIVE); UR BILIRUBIN (Dip) NEGATIVE (NEGATIVE); UR BLOOD (Dip) NEGATIVE (NEGATIVE); UR CLARITY CLEAR (CLEAR); UR COLOR STRAW (YELLOW); UR GLUCOSE (Dip) NEGATIVE (NEGATIVE); UR KETONES (Dip) NEGATIVE (NEGATIVE); UR LEUKOCYTE ESTERASE (Dip) NEGATIVE Leu/ul (NEGATIVE); UR NITRITE (Dip) NEGATIVE (NEGATIVE); UR SPECIFIC GRAVITY (Dip) 1.008 (1.003-1.030); UR TOTAL PROTEIN (Dip) NEGATIVE (NEGATIVE); UR UROBILINOGEN (Dip) NEGATIVE (NEGATIVE)
[2018-04-17] MEDS: CIPROFLOXACIN 500 MG TAB PO (17:46)
[2018-04-17] MEDS: TAMSULOSIN (SR) 0.4 MG CAP PO (21:06)
[2018-04-17] MEDS: INSULIN GLARGINE [LANTus] (100 UNITS/ML) SYG SC (21:53)
[2018-04-18] MEDS: ACCU-CHEK XX (02:00)
[2018-04-18] MEDS: CIPROFLOXACIN 500 MG TAB PO (06:51)
[2018-04-18] MEDS: HYDROCODONE/APAP (7.5/325) TAB PO ×2 (06:51→16:21)
[2018-04-18] MEDS: PANTOPRAZOLE (EC) 40 MG TAB PO (06:51)
[2018-04-18] MEDS: INSULIN ASPART [NOVOLOG] 3 ML PEN SC ×2 (07:50→11:40)
[2018-04-18] MEDS ORDERED: KETOROLAC 15 MG INJ IV (13:30)
[2018-04-18] MEDS: ONDANSETRON 4 MG TAB PO (16:21)
== END 2018-04-18 18:00 | disposition home or self-care (01) | DRG 872 ==
LOC: MS1 04-14 14:29 → E/R 19:39 → MS4 22:13
DX: A41.9 Sepsis, unspecified organism (principal); N10 Acute pyelonephritis; R65.20 Severe sepsis without septic shock; E66.9 Obesity, unspecified; Z68.37 Body mass index [BMI] 37.0-37.9, adult; E03.9 Hypothyroidism, unspecified; E11.65 Type 2 diabetes mellitus with hyperglycemia; N20.0 Calculus of kidney; B96.20 Unspecified Escherichia coli [E. coli] as the cause of diseases classified elsewhere
CPT/HCPCS: 36415; 71045; 74176; 76775; 80048; 80053; 81001; 81003; 81025; 82962; 83605; 84439; 84443; 84484; 84703; 85025; 85610; 85730; 87040; 87086; 93005; 96374; 96375; 96376; 99291-25

== ENCOUNTER 2019-01-22 07:55 | Emergency (ER) | payer OTHER | END 2019-01-22 10:14 | disposition home or self-care (01) | LOC: FTE 07:55 | DX: S80.12XA Contusion of left lower leg, initial encounter (principal); W01.0XXA Fall on same level from slipping, tripping and stumbling without subsequent striking against object, initial encounter; Y92.510 Bank as the place of occurrence of the external cause | CPT/HCPCS: 73510; 81025; 99283-25 ==